=== PATIENT | female | born 1955 | race Caucasian/White ===

== ENCOUNTER → 2023-06-09 07:37 | Outpatient (REF) | payer MEDICARE, OTHER, SELFPAY ==
[2023-06-09 09:07] LABS: % Basophils 1.5 % (0-2); % Immature Granulocytes 0.4 % (0-0.5); % Lymphocytes 41.5 % (20.5-51.1); % Monocytes 8.6 % (1.7-9.3); Absolute Basophils 0.1 10^3/uL (0-0.2); Absolute Lymphocytes 1.9 10^3/uL (1.2-3.4); Absolute Monocytes 0.4 10^3/uL (0.1-0.6); Absolute Neutrophils 2.2 10^3/uL (1.4-6.5); Hematocrit 42.4 % (37.0-47.0); Mean Corpuscular Hgb 31.3 pg (27.0-31.0); Mean Corpuscular Volume 94.9 fL (81.0-99.0); Mean Platelet Volume 10.4 fL (7.4-10.4); Nucleated Red Blood Cells % 0 %; Platelet Count 200 10^3/uL (130-400); Red Blood Cell Count 4.47 10^6/uL (4.20-5.40); Red Cell Dist. Width 12.4 % (11.5-14.5); White Blood Cell Count 4.7 10^3/uL (4.8-10.8)
[2023-06-09 09:41] LABS: Blood Urea Nitrogen 14 mg/dl (7-17); Calcium 9.3 mg/dl (8.4-10.2); Carbon Dioxide 30 mmol/L (22-30); Chloride 102 mmol/L (98-107); Glucose 95 mg/dl (70-99); Potassium 3.9 mmol/L (3.5-5.1); Sodium 139 mmol/L (135-145); eGFR > 60.00
== END ==
LOC: SDSPAT 07:37
PROVIDERS: ATTENDING PHYSICIAN Orthopaedic Surgery Hand Surgery; FAMILY PHYSICIAN Internal Medicine
DX: Z01.818 Encounter for other preprocedural examination (principal)
CPT/HCPCS: 36415; 80048; 85025; 93005

== ENCOUNTER 2023-06-17 06:15 | Day surgery (SDC) | payer MEDICARE, OTHER, SELFPAY ==
[2023-06-09 09:07] VITALS: BMI 26.6
[2023-06-17] VITALS (8 sets, daily range): BP systolic 95–146; BP diastolic 65–86; BMI 26.6
[2023-06-17] MEDS: TYLENOL 1000 MG PO (11:04)
[2023-06-17] MEDS: CELEBREX 200 MG PO (11:04)
[2023-06-17] MEDS: NORMOSOL-R 1000 IV (11:05)
== END 2023-06-17 16:28 | disposition home or self-care (01) ==
LOC: SDS 06:15
PROVIDERS: ATTENDING PHYSICIAN Orthopaedic Surgery Hand Surgery; FAMILY PHYSICIAN Internal Medicine
DX: S43.432A Superior glenoid labrum lesion of left shoulder, initial encounter (principal); S43.082A Other subluxation of left shoulder joint, initial encounter; X58.XXXA Exposure to other specified factors, initial encounter; M75.122 Complete rotator cuff tear or rupture of left shoulder, not specified as traumatic; M18.12 Unilateral primary osteoarthritis of first carpometacarpal joint, left hand; M25.712 Osteophyte, left shoulder
CPT/HCPCS: 29827; 24310; 29826; 29824; C1713

== ENCOUNTER → 2023-10-23 11:25 | Outpatient (REF) | payer MEDICARE, OTHER, SELFPAY | LOC: HWRAD 11:25 | PROVIDERS: ATTENDING PHYSICIAN Family Medicine | DX: Z87.891 Personal history of nicotine dependence (principal) | CPT/HCPCS: 71271 ==

== ENCOUNTER 2024-07-01 06:26 | Day surgery (SDC) | payer MEDICARE, OTHER, SELFPAY | END 2024-07-01 12:52 | disposition home or self-care (01) | LOC: GI 06:26 | PROVIDERS: ATTENDING PHYSICIAN Student in an Organized Health Care Education/Training Program; FAMILY PHYSICIAN Family Medicine | DX: R13.14 Dysphagia, pharyngoesophageal phase (principal); K44.9 Diaphragmatic hernia without obstruction or gangrene; K22.89 Other specified disease of esophagus; K31.89 Other diseases of stomach and duodenum; K29.50 Unspecified chronic gastritis without bleeding | CPT/HCPCS: 43249; 88305; 88342 ==

== ENCOUNTER → 2024-10-21 11:11 | Outpatient (REF) | payer OTHER, SELFPAY ==
[2024-10-23 13:26] LABS: Quantiferon Mitogen minus NIL 9.88 IU/mL; Quantiferon NIL 0.12 IU/mL; Quantiferon Plus TB1 minus NIL 0.03 IU/mL (<=0.34); Quantiferon Plus TB2 minus NIL 0.02 IU/mL (<=0.34); Quantiferon TB Gold Plus Negative (Negative)
== END ==
LOC: OHS 11:11
PROVIDERS: ATTENDING PHYSICIAN Nurse Practitioner Family
DX: Z23 Encounter for immunization (principal)
CPT/HCPCS: 36415; 86480; 86735; 86762; 86765; 86787

== ENCOUNTER → 2024-10-24 07:53 | Outpatient (REF) | payer OTHER, SELFPAY | LOC: RAD 07:53 | PROVIDERS: ATTENDING PHYSICIAN Student in an Organized Health Care Education/Training Program; FAMILY PHYSICIAN Family Medicine | DX: R10.32 Left lower quadrant pain (principal); R19.4 Change in bowel habit; Z87.19 Personal history of other diseases of the digestive system | CPT/HCPCS: 74177; Q9967 ==

== ENCOUNTER 2024-12-28 06:20 | Day surgery (SDC) | payer MEDICARE, OTHER, SELFPAY | END 2024-12-28 09:28 | disposition home or self-care (01) | LOC: GI 06:20 | PROVIDERS: ATTENDING PHYSICIAN Student in an Organized Health Care Education/Training Program; FAMILY PHYSICIAN Family Medicine | DX: Z12.11 Encounter for screening for malignant neoplasm of colon (principal); K64.8 Other hemorrhoids; K64.4 Residual hemorrhoidal skin tags; K57.32 Diverticulitis of large intestine without perforation or abscess without bleeding; K57.30 Diverticulosis of large intestine without perforation or abscess without bleeding | CPT/HCPCS: G0121 ==

== ENCOUNTER → 2025-03-28 14:08 | Outpatient (REF) | payer MEDICARE, OTHER, SELFPAY | LOC: HWRAD 14:08 | PROVIDERS: ATTENDING PHYSICIAN Family Medicine | DX: Z87.891 Personal history of nicotine dependence (principal) | CPT/HCPCS: 71271 ==

== ENCOUNTER 2025-05-07 10:39 | Emergency (ER) | payer MEDICARE, OTHER, SELFPAY ==
[2025-05-07 10:45] VITALS: BP 126/94
--- NOTE | 2025-05-07 11:16 | ED.GENMED ---
History of Present Illness
General
Chief Complaint: Foreign Body Removal
Source: patient
Exam Limitations: none
Time Seen by Provider: 05/07/25 10:59
Nursing documentation reviewed up to this point in time: agreed with
History of Present Illness
History of Present Illness:
69-year-old female with no clinically significant past medical history has a soft rubber piece of her hearing aid stuck in the right ear canal. She attempted to get it out to no avail.
Past History
Past History
ED Past Medical History: Other (IBS, arthritis, chronic pain)
ED Past Surgical History: Bowel resection, Cholecystectomy and Orthopedic
Social History
Tobacco: Smoker
Alcohol: None
Drug: None
Personal:
Living: with family
Employment: Employed
Review of Systems
Review of Systems
Allergies reviewed?: Yes
All Other Systems: ROS reviewed and negative except as documented in HPI and ROS
Phy Exam
Physical Exam
Physical Exam:
PHYSICAL EXAMINATION:
General: no apparent distress, not acutely ill
Neuro: alert and oriented.
Psychiatric: well kept. interactive and cooperative
Musculoskeletal: Moves with ease
Skin: Warm, pink. Small amount of fresh blood in the distal ear canal
ENT Exam
ENT Exam: other (Small amount of fresh blood in the distal ear canal)
Additional ENT: There is a soft black rubber foreign body in the distal right ear canal
Course
Vital Signs
Initial and Last Documented VS:
Initial Vital Signs
Temp Pulse Resp BP Pulse Ox
97.7 F 105 22 126/94 97
05/07/25 10:45 05/07/25 10:45 05/07/25 10:45 05/07/25 10:45 05/07/25 10:45
Last Documented Vital Signs
Temp Pulse Resp BP Pulse Ox
97.7 F 105 22 126/94 97
05/07/25 10:45 05/07/25 10:45 05/07/25 10:45 05/07/25 10:45 05/07/25 11:21
Procedures
Foreign Body Removal-Ear
Right External canal:
Tenderness: mild
Any local drainage: purulent drainage (small amount fresh blood, no active bleeding)
Removal of foreign body using: alligator forceps
Exam of canal after removal: abrasion/external canal
MDM/Problems Addressed
MDM/Problems Addressed:
69-year-old female with no clinically significant past medical history has a soft rubber piece of her hearing aid stuck in the right ear canal. She attempted to get it out to no avail.
Black soft rubber hearing aid piece easily removed with alligator forceps. Prior to removal there was a small amount of fresh blood in the distal ear canal.
After removal, TM well-visualized and is intact.
*Pulse Oximetry
SaO2: 97
Oxygen Mode of Delivery: Room air
Patient hypoxic: not evaluated
*Critical Care Note
Total Time (30-74mins, 75-104mins- exclusive of procedures): Not Applicable
ED Attending Note
-
Portions of this chart may have been created with voice recognition software.� Occasional wrong word or��sound alike� substitutions may have occurred due to the inherent limitations of voice recognition software.
Discharge Plan
Departure
Patient Disposition: Home (Routine Discharge)
Date of Disposition: 05/07/25
Time of Disposition: 11:15
Patient with high blood pressure during this ER visit?: No
Condition: Good
Discharge Problem:
Foreign body in right ear
Instructions: Foreign Body in the Ear ED
Prescriptions:
New
[id number]-GB 3.5-10,000-1 mg/mL-unit/mL-% solution
4 drp otic (ear) Q8H 10 Days Qty: 10 0RF
No Action
levothyroxine [Synthroid] 125 MCG tablet
125 mcg PO DAILY
duloxetine 60 MG capsule,delayed release(DR/EC)
60 mg PO DAILY
tramadol 50 mg Tablet
50 - 100 mg PO BID PRN (Reason: pain)
Medical Marijuana
1 dose PO DAILY
clonazepam 0.5 mg Tablet
0.25 mg PO HS
acetaminophen [Tylenol Ex Str Arthritis Pain] 500 mg Tablet
1,000 mg PO Q6H PRN (Reason: pain)
ibuprofen [Advil] 200 mg Tablet
400 mg PO Q6H PRN (Reason: pain)
Referrals:
Issac Sykes MD [Active, Otology] - As needed
Activity Restrictions/Additional Instructions:
As we discussed, you have a small abrasion in the canal of the right ear. I sent a prescription to your pharmacy for antibiotic eardrops to use twice a day for 5 days.
If you have any further problems, see the ENT doctor.
Interventions
Interventions:
*General Assessment Last Done: 05/07/25 10:45
*Neglect/Abuse Screening Last Done: 05/07/25 10:45
[facility] Risk Assessment Tool Last Done: 05/07/25 11:30
*Risk Screen - Suicide (C-SSRS) Last Done: 05/07/25 10:45
*Nursing Disposition Last Done: 05/07/25 11:30
Discharge Date and Time
Discharge Date/Time: 05/07/25 11:31
Print Language: FILIPINO
== END 2025-05-07 11:31 | disposition home or self-care (01) ==
LOC: EMR 10:39
PROVIDERS: EMERGENCY PHYSICIAN Emergency Medicine; FAMILY PHYSICIAN Family Medicine
DX: T16.1XXA Foreign body in right ear, initial encounter (principal); W44.G1XA Audio device entering into or through a natural orifice, initial encounter; K58.9 Irritable bowel syndrome, unspecified; M19.90 Unspecified osteoarthritis, unspecified site; G89.29 Other chronic pain; F17.200 Nicotine dependence, unspecified, uncomplicated
CPT/HCPCS: 99282